=== PATIENT | female | born 1965 | race Caucasian/White ===

== ENCOUNTER → 2017-07-25 | Outpatient (CLI) | payer OTHER | END | disposition home or self-care (01) | LOC: CFH 10:01 | PROVIDERS: ATTEND Genetic Counselor, MS | DX: Z12.31 Encounter for screening mammogram for malignant neoplasm of breast (principal) | CPT/HCPCS: 77063; G0202 ==

== ENCOUNTER 2018-06-16 07:56 | Day surgery (SDC) | payer OTHER ==
[~2018-06-16] VITALS: Ht 144.8 cm; Wt 48.9 kg
[~2018-06-16 07:56] MED LIST: BUPIVACAINE/PF 0.5% ONE
[2018-06-16] MEDS ORDERED: [UNRECOGNIZED DRUG - CODE] PO (09:22)
[2018-06-16] MEDS ORDERED: RED600CA2 PO (09:22)
[2018-06-16 09:23] VITALS: BP 125/82
[2018-06-16] MEDS ORDERED: LACTATED RINGERS 1,000 ML IV SCH (09:42)
[2018-06-16] MEDS ORDERED: GABAPENTIN 300 MG CAPSULE ONE (09:51)
[2018-06-16] MEDS ORDERED: ONDANSETRON ODT 8 MG ONE (09:52)
[2018-06-16] MEDS ORDERED: ACETAMINOPHEN 500 MG TABLET ONE (09:52)
[2018-06-16] MEDS ORDERED: MIDAZOLAM 1 MG/ML, 2ML ONE (09:57)
[2018-06-16] MEDS ORDERED: FENTANYL PF 100 MCG/2ML ONE (09:57)
[2018-06-16] MEDS ORDERED: DEXAMETHASONE 4 MG/ML, 1ML ONE (10:46)
[2018-06-16] MEDS ORDERED: CEFAZOLIN 1,000 MG ONE (10:46)
[2018-06-16] MEDS ORDERED: PROPOFOL 10 MG/ML, 20ML ONE (10:46)
[2018-06-16] MEDS ORDERED: KETOROLAC 30 MG/1 ML ONE (10:46)
[2018-06-16] MEDS ORDERED: MIDAZOLAM 1 MG/ML, 2ML IV PRN (11:00)
[2018-06-16] MEDS ORDERED: OXYcodone 5 MG/5 ML ORAL.SOL UDC PO PRN (11:00)
[2018-06-16] MEDS ORDERED: LABETALOL 5MG/ML, 20ML IV PRN (11:00)
[2018-06-16] MEDS ORDERED: PROMETHAZINE 25 MG/ML, 1ML IV PRN (11:00)
[2018-06-16] MEDS ORDERED: ONDANSETRON 2MG/ML, 2ML IV PRN (11:00)
[2018-06-16] MEDS ORDERED: HYDROmorphone 1 MG/ML, 1ML IV PRN (11:00)
[2018-06-16] MEDS ORDERED: FENTANYL PF 100 MCG/2ML IV PRN (11:00)
[2018-06-16] MEDS ORDERED: MEPERIDINE/PF 25MG/0.5ML IVPush PRN (11:00)
[2018-06-16] MEDS ORDERED: SCOPOLAMINE PATCH, 1.5MG PATCH.TD72 TD PRN (11:00)
[2018-06-16] MEDS ORDERED: DIPHENHYDRAMINE 50 MG/ML, 1ML IVPush PRN (11:00)
[2018-06-16] MEDS ORDERED: OXYcodone 5 MG/5 ML ORAL.SOL UDC ONE (11:38)
== END 2018-06-16 13:35 | disposition home or self-care (01) ==
LOC: OUT 07:56
PROVIDERS: ATTEND Surgery
DX: K42.9 Umbilical hernia without obstruction or gangrene (principal); E78.5 Hyperlipidemia, unspecified
CPT/HCPCS: 49585; J0690; J1100; J1885; J2250; J2704; J3010; J3490; J7120

== ENCOUNTER → 2018-07-16 | Outpatient (CLI) | payer OTHER ==
[~2018-07-16] MED LIST changes: -BUPIVACAINE/PF 0.5% ONE; +RED600CA2 PO; +[UNRECOGNIZED DRUG - CODE] PO
== END | disposition home or self-care (01) ==
LOC: CFH 14:58
PROVIDERS: ATTEND Genetic Counselor, MS
DX: Z12.31 Encounter for screening mammogram for malignant neoplasm of breast (principal)
CPT/HCPCS: 77067